=== PATIENT | female | born 1965 | race African-American/Black ===

== ENCOUNTER 2018-05-26 08:09 | Emergency (ER) | payer OTHER ==
[~2018-05-26] VITALS: Ht 157.5 cm; Wt 72.2 kg
--- NOTE | 2018-05-26 09:33 | RAD ---
Chest, PA and Lateral: Technique: PA and lateral views of the chest were obtained. History: Fall, chest pain. Comparison: None. Findings: The heart and pulmonary vasculature appear within normal limits. The lungs are clear. The pleural margins are clear. Impression: No acute chest process is seen. Electronically signed by: Zachary Zayas MD (05/26/2018 9:29 AM) [facility]
[2018-05-26] MEDS ORDERED: ONDANSETRON ODT 4 MG TAB.RAPDIS PO ONE (09:40)
[2018-05-26] MEDS ORDERED: KETOROLAC TROMETHAMINE 10 MG TABLET PO ONE (09:40)
--- NOTE | 2018-05-26 09:45 | PHYS DOC ---
Past History Past Medical History: Anxiety, Depression, Migraines Past Surgical History: Hysterectomy Alcohol Use: None Drug Use: None Adult General Chief Complaint Chief Complaint: BREAST PROBLEM HPI HPI 52 old female presents with right breast pain and concern for breast mass. The patient got up off of the toilet one week ago in as she said it was dizzy. She fell forward in her upper chest and landed on the metal rail of the shower stall. All of her weight landed on this area. She immediately had pain across her chest which was worse on the right side. She has been managing the pain for the last 1 week at home. The patient came in today because she is concerned that she might have a new breast mass. This is located in the 2 o'clock position of the right breast. She continues to have chest wall pain in the same area. She denies fever or chills. She denies shortness of breath or diaphoresis. She has never had a positive mammogram. Review of Systems Review of Systems Constitutional: Denies fever or chills [] Eyes: Denies change in visual acuity, redness, or eye pain [] HENT: Denies nasal congestion or sore throat [] Respiratory: Denies cough or shortness of breath [] Cardiovascular: No additional information not addressed in HPI [] GI: Denies abdominal pain, nausea, vomiting, bloody stools or diarrhea [] : Denies dysuria or hematuria [] Musculoskeletal: Right sided chest wall pain, right breast pain[] Integument: Denies rash or skin lesions [] Neurologic: Denies headache, focal weakness or sensory changes [] Endocrine: Denies polyuria or polydipsia [] All other systems were reviewed and found to be within normal limits, except as documented in this note. Current Medications Current Medications Current Medications Medications (Trade) Dose Ordered Sig/Ana Start Time Stop Time Status Last Admin Dose Admin Ketorolac Tromethamine (Toradol) 10 mg 1X ONCE 05/26/18 09:40 05/26/18 09:41 05/26/18 09:34 10 MG Ondansetron HCl (Zofran Odt) 4 mg 1X ONCE 05/26/18 09:40 05/26/18 09:41 05/26/18 09:33 4 MG Allergies Allergies Allergies Coded Allergies Type Severity Reaction Last Updated Verified Penicillins Allergy Intermediate ITCHY AND DIARRHEA 05/26/18 Yes acetaminophen Allergy Mild ITCHY 05/26/18 Yes morphine Allergy Mild ITCHY 05/26/18 Yes oxycodone Allergy Mild ITCHY 05/26/18 Yes promethazine Allergy Mild ITCHY 05/26/18 Yes Physical Exam Physical Exam Constitutional: Well developed, well nourished, no acute distress, non-toxic appearance. [] HENT: Normocephalic, atraumatic, bilateral external ears normal, oropharynx moist, no oral exudates, nose normal. [] Eyes: PERRLA, EOMI, conjunctiva normal, no discharge. [] Neck: Normal range of motion, no tenderness, supple, no stridor. [] Cardiovascular:Heart rate regular rhythm, no murmur [] Lungs & Thorax: Bilateral breath sounds clear to auscultation. 1.5 cm area of firmness and tenderness at the 2 o'clock position of the right breast. This overlies a rib. [] Abdomen: Bowel sounds normal, soft, no tenderness, no masses, no pulsatile masses. [] Skin: Warm, dry, no erythema, no rash. [] Back: No tenderness, no CVA tenderness. [] Extremities: No tenderness, no cyanosis, no clubbing, ROM intact, no edema. [] Neurologic: Alert and oriented X 3, normal motor function, normal sensory function, no focal deficits noted. [] Psychologic: Affect normal, judgement normal, mood normal. [] Current Patient Data Vital Signs Vital Signs Date Time Temp Pulse Resp B/P (MAP) Pulse Ox O2 Delivery O2 Flow Rate FiO2 05/26/18 08:10 98.0 82 20 98 Room Air EKG EKG [] Radiology/Procedures Radiology/Procedures [] Impressions: Examination: Ultrasound right medial chest HISTORY: History of pain, lump, fall COMPARISON: None available FINDINGS: Ultrasound of the right medial chest wall demonstrates no definite evidence of mass or lesion on the visualized images. IMPRESSION: No evidence of mass or lesion identified in the medial right chest wall at the site of perceived lump. Electronically signed by: Zachary Zayas MD (05/26/2018 11:12 AM) [facility] DICTATED AND SIGNED BY: ZACHARY ZAYAS MD DATE: 05/26/18 1110 CC: KIRSTEN SAEED DO; ZOE KRUEGER DO Chest, PA and Lateral: Technique: PA and lateral views of the chest were obtained. History: Fall, chest pain. Comparison: None. Findings: The heart and pulmonary vasculature appear within normal limits. The lungs are clear. The pleural margins are clear. Impression: No acute chest process is seen. Electronically signed by: Zachary Zayas MD (05/26/2018 9:29 AM) [facility] DICTATED AND SIGNED BY: ZACHARY ZAYAS MD DATE: 05/26/18925 CC: KIRSTEN SAEED DO; ZOE KRUEGER DO Course & Med Decision Making Course & Med Decision Making Pertinent Labs and Imaging studies reviewed. (See chart for details) The patient's chest x-ray is unremarkable. Her ultrasound did not show any mass or other concerns in the area in question. I believe she just has deep tissue bruising. She is stable for discharge at this time. I will discharge her with a short course of tramadol. Dragon Disclaimer Dragon Disclaimer This electronic medical record was generated, in whole or in part, using a voice recognition dictation system. Departure Departure: Referrals: KIRSTEN SAEED DO (PCP) ZOE KRUEGER DO May 26, 2018 09:45
[2018-05-26] MEDS ORDERED: traMADol 50 MG TABLET ONE (10:56)
[2018-05-26 11:15] VITALS: BP 118/79
--- NOTE | 2018-05-26 11:16 | RAD ---
Examination: Ultrasound right medial chest HISTORY: History of pain, lump, fall COMPARISON: None available FINDINGS: Ultrasound of the right medial chest wall demonstrates no definite evidence of mass or lesion on the visualized images. IMPRESSION: No evidence of mass or lesion identified in the medial right chest wall at the site of perceived lump. Electronically signed by: Zachary Zayas MD (05/26/2018 11:12 AM) [facility]
[2018-05-26] MEDS ORDERED: traMADol 50 MG TABLET PO ONE (11:20)
[2018-05-26] MEDS ORDERED: TRAM50TA PO (11:32)
== END 2018-05-26 11:39 | disposition home or self-care (01) ==
LOC: ER 08:09
DX: N64.4 Mastodynia (principal); R42 Dizziness and giddiness; R07.89 Other chest pain; N63.10 Unspecified lump in the right breast, unspecified quadrant; G89.11 Acute pain due to trauma; F41.9 Anxiety disorder, unspecified; F32.9 Major depressive disorder, single episode, unspecified; G43.909 Migraine, unspecified, not intractable, without status migrainosus; Z88.0 Allergy status to penicillin; Z88.6 Allergy status to analgesic agent; Z88.5 Allergy status to narcotic agent; Z88.8 Allergy status to other drugs, medicaments and biological substances; W18.09XA Striking against other object with subsequent fall, initial encounter; Y93.89 Activity, other specified; Y92.89 Other specified places as the place of occurrence of the external cause; Y99.8 Other external cause status
CPT/HCPCS: 71046; 76604; 99284; Q0162

== ENCOUNTER → 2018-11-19 | Outpatient (CLI) | payer OTHER ==
[~2018-11-19] MED LIST: TRAM50TA PO
[2018-11-24 13:10] LABS: TESTOSTERONE FREE 0.15 ng/dL (0.10-0.85); TESTOSTERONE TOTAL 20 ng/dL (3-41)
== END | disposition home or self-care (01) ==
LOC: LAB 16:18
PROVIDERS: ATTEND Nurse Practitioner Women's Health
DX: R68.82 Decreased libido (principal)
CPT/HCPCS: 36415; 84402; 84403

== ENCOUNTER 2019-04-29 10:59 | Inpatient (IN) | payer OTHER ==
[~2019-04-29] VITALS: Ht 157.5 cm; Wt 73.0 kg
--- NOTE | 2019-04-29 12:11 | RAD ---
EXAM: CHEST 1 VIEW History: Chest pain COMPARISON: 05/26/2018 TECHNIQUE: Single portable radiograph of the chest FINDINGS: The cardiac silhouette is unremarkable. The lungs are clear bilaterally. The costophrenic sulci are clear and well demarcated. IMPRESSION: No radiographic evidence of an acute cardiopulmonary process. Electronically signed by: Zachary Zayas MD (04/29/2019 12:08 PM) [id number]
[2019-04-29 12:25] LABS: BASO % 1 % (0-3); EOS # 0.3 x10^3/uL (0.0-0.7); EOS % 10 % (0-3); HEMATOCRIT 39.3 % (36.0-47.0); HEMOGLOBIN 13.2 g/dL (12.0-15.5); LYMPH # 1.1 x10^3/uL (1.0-4.8); LYMPH % 40 % (24-48); MEAN CORPUSCULAR HEMOGLOBIN 32 pg (25-35); MEAN CORPUSCULAR HGB CONC 34 g/dL (31-37); MEAN CORPUSCULAR VOLUME 95 fL (79-100); MONO # 0.4 x10^3/uL (0.0-1.1); MONO % 16 % (0-9); NEUT # 0.9 x10^3uL (1.8-7.7); NEUT % 33 % (31-73); PLATELET COUNT 212 x10^3/uL (140-400); RED BLOOD COUNT 4.15 x10^6/uL (3.50-5.40); RED CELL DISTRIBUTION WIDTH 13.1 % (11.5-14.5); WHITE BLOOD COUNT 2.7 x10^3/uL (4.0-11.0)
[2019-04-29 12:36] LABS: ALBUMIN 3.8 g/dL (3.4-5.0); ALBUMIN/GLOBULIN RATIO 1.2 (1.0-1.7); CALCIUM 9.2 mg/dL (8.5-10.1); CREATININE 0.8 mg/dL (0.6-1.0); GFR 91.5; POTASSIUM 4.3 mmol/L (3.5-5.1); TOTAL BILIRUBIN 0.1 mg/dL (0.2-1.0); TOTAL PROTEIN 6.9 g/dL (6.4-8.2)
[2019-04-29] MEDS ORDERED: ONDANSETRON PF 4 MG/2 ML VIAL. IV ONE (12:45)
[2019-04-29] MEDS ORDERED: LIDO:MAALOX 1:1 20 ML SINGLE DOSE. PO ONE (12:45)
[2019-04-29] MEDS ORDERED: FAMOTIDINE 20 MG/2 ML VIAL IVP ONE (12:45)
--- NOTE | 2019-04-29 12:49 | ED.ADGEN ---
Past History Past Medical History: Anxiety, Depression Past Surgical History: Cholecystectomy, Hysterectomy Alcohol Use: None Drug Use: None Adult General Chief Complaint Chief Complaint Chest pain HPI HPI Patient is a 53-year-old -[place] female with history of hypertension who presents with left-sided chest pressure radiating to left shoulder and arm. Symptom onset was 4 hours prior to ED arrival while at rest. Associated symptoms include nausea sweats and abdominal discomfort. Chest pressure is described as mild and is not worsened or improved by activity or behavior. Denies vomiting, hematemesis, diarrhea or melena. No fevers chills, sweats. No dizziness or lightheadedness. No other acute symptoms or complaints.] Review of Systems Review of Systems Review symptoms as per history of present illness. All other review symptoms are negative. All other systems were reviewed and found to be within normal limits, except as documented in this note. Current Medications Current Medications Current Medications Medications (Trade) Dose Ordered Sig/Ana Start Time Stop Time Status Last Admin Dose Admin Famotidine (Pepcid Vial) 20 mg 1X ONCE 04/29/19 12:45 04/29/19 12:46 DC 04/29/19 12:52 20 MG Multi-Ingredient Mouthwash/Gargle (Gi Cocktail) 20 ml 1X ONCE 04/29/19 12:45 04/29/19 12:46 DC 04/29/19 12:52 20 ML Nitroglycerin (Nitrostat) 0.4 mg 1X ONCE 04/29/19 14:15 04/29/19 14:16 DC 04/29/19 14:07 0.4 MG Ondansetron HCl (Zofran) 4 mg 1X ONCE 04/29/19 12:45 04/29/19 12:46 DC 04/29/19 12:52 4 MG Allergies Allergies Allergies Coded Allergies Type Severity Reaction Last Updated Verified Penicillins Allergy Intermediate ITCHY AND DIARRHEA 05/26/18 Yes morphine Allergy Mild ITCHY 05/26/18 Yes oxycodone Allergy Mild ITCHY 05/26/18 Yes promethazine Allergy Mild ITCHY 05/26/18 Yes Physical Exam Physical Exam Constitutional: Well developed, well nourished, no acute distress. [] HENT: Normocephalic, atraumatic, bilateral external ears normal, oropharynx moist, nose normal. [] Eyes: PERRLA, EOMI, conjunctiva normal, no discharge. [] Neck: Normal range of motion, no tenderness, supple, no stridor. [] Cardiovascular:Heart rate regular rhythm, no murmur [] Lungs & Thorax: Bilateral breath sounds clear to auscultation [] Abdomen: Bowel sounds normal, soft, no tenderness. [] Skin: Warm, dry, no erythema, no rash. [] Back: No tenderness, no CVA tenderness. [] Extremities: No tenderness, no cyanosis, no clubbing, ROM intact, no edema. [] Neurologic: Alert and oriented X 3, anxious, normal sensory function, no focal deficits noted. [] Psychologic: Affect normal, judgement normal, mood normal. [] Current Patient Data Vital Signs Vital Signs Date Time Temp Pulse Resp B/P (MAP) Pulse Ox O2 Delivery O2 Flow Rate FiO2 04/29/19 14:07 52 108/62 04/29/19 13:46 18 100 Room Air 04/29/19 11:16 98.3 Lab Results Laboratory Tests Test 04/29/19 12:15 White Blood Count 2.7 x10^3/uL (4.0-11.0) L Red Blood Count 4.15 x10^6/uL (3.50-5.40) Hemoglobin 13.2 g/dL (12.0-15.5) Hematocrit 39.3 % (36.0-47.0) Mean Corpuscular Volume 95 fL (79-100) Mean Corpuscular Hemoglobin 32 pg (25-35) Mean Corpuscular Hemoglobin Concent 34 g/dL (31-37) Red Cell Distribution Width 13.1 % (11.5-14.5) Platelet Count 212 x10^3/uL (140-400) Neutrophils (%) (Auto) 33 % (31-73) Lymphocytes (%) (Auto) 40 % (24-48) Monocytes (%) (Auto) 16 % (0-9) H Eosinophils (%) (Auto) 10 % (0-3) H Basophils (%) (Auto) 1 % (0-3) Neutrophils # (Auto) 0.9 x10^3uL (1.8-7.7) L Lymphocytes # (Auto) 1.1 x10^3/uL (1.0-4.8) Monocytes # (Auto) 0.4 x10^3/uL (0.0-1.1) Eosinophils # (Auto) 0.3 x10^3/uL (0.0-0.7) Basophils # (Auto) 0.0 x10^3/uL (0.0-0.2) Sodium Level 130 mmol/L (136-145) L Potassium Level 4.3 mmol/L (3.5-5.1) Chloride Level 94 mmol/L (98-107) L Carbon Dioxide Level 29 mmol/L (21-32) Anion Gap 7 (6-14) Blood Urea Nitrogen 7 mg/dL (7-20) Creatinine 0.8 mg/dL (0.6-1.0) Estimated GFR (Cockcroft-Gault) 91.5 BUN/Creatinine Ratio 9 (6-20) Glucose Level 84 mg/dL (70-99) Calcium Level 9.2 mg/dL (8.5-10.1) Total Bilirubin 0.1 mg/dL (0.2-1.0) L Aspartate Amino Transferase (AST) 35 U/L (15-37) Alanine Aminotransferase (ALT) 62 U/L (14-59) H Alkaline Phosphatase 96 U/L (46-116) Troponin I Quantitative < 0.017 ng/mL (0-0.055) Total Protein 6.9 g/dL (6.4-8.2) Albumin 3.8 g/dL (3.4-5.0) Albumin/Globulin Ratio 1.2 (1.0-1.7) EKG EKG [EKG: Sinus bradycardia, rate 50, no acute ST-T wave changes.] Radiology/Procedures Radiology/Procedures [Chest x-ray: No acute cardiopulmonary disease per radiology report] Course & Med Decision Making Course & Med Decision Making Pertinent Labs and Imaging studies reviewed. (See chart for details) [Atypical chest pain. No relief with Pepcid and GI cocktail. Reports complete relief with nitroglycerin �1. Aspirin taken prior to ED arrival. Will admit to the hospitalist service for further evaluation and treatment.] Final Impression Final Impression [1. Chest pain] Dragon Disclaimer Dragon Disclaimer This electronic medical record was generated, in whole or in part, using a voice recognition dictation system. ZOE GUERRERO DO Apr 29, 2019 12:49
[2019-04-29] MEDS ORDERED: NITROGLYCERIN SUBLINGUAL 0.4 MG BOTTLE OF 25. SL ONE (14:15)
--- NOTE | 2019-04-29 14:38 | EKG ---
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
[2019-04-29] MEDS ORDERED: NITROGLYCERIN SUBLINGUAL 0.4 MG BOTTLE OF 25. SL PRN (15:00)
[2019-04-29] MEDS ORDERED: ONDANSETRON PF 4 MG/2 ML VIAL. IV PRN (15:00)
[2019-04-29] MEDS ORDERED: CLON0.5T11 PO (15:56)
[2019-04-29] MEDS ORDERED: OXCA600T3 PO (15:56)
[2019-04-29] MEDS ORDERED: ZOLP10TA PO (15:56)
[2019-04-29] MEDS ORDERED: CETI10TA22 PO (15:56)
[2019-04-29] MEDS ORDERED: MONT10TA80 PO (15:56)
[2019-04-29] MEDS ORDERED: TRAZ-86 PO (15:56)
[2019-04-29] MEDS ORDERED: PROP10TA PO (15:56)
[2019-04-29] MEDS ORDERED: CHOL10003 PO (15:56)
[2019-04-29 16:35] VITALS: BP 104/53
[2019-04-29] MEDS ORDERED: CYAN10002 IM (17:22)
[2019-04-29] MEDS ORDERED: CLON1TAB11 PO (17:22)
[2019-04-29] MEDS ORDERED: VORT10TA PO (17:22)
[2019-04-29] MEDS ORDERED: ZOLPIDEM 5 MG TABLET. PO PRN (17:30)
[2019-04-29] MEDS: IV NORMAL SALINE 1,000ML 1,000 ML IV SCH (18:12)
[2019-04-29 19:06] VITALS: BP 99/69
[2019-04-29] MEDS: PROPRANOLOL 10 MG TABLET. PO SCH (19:11)
[2019-04-29] MEDS: NON FORMULARY ITEM (Vortioxetine Hydrobromide (Trintellix) 10 MG) PO SCH (19:11)
[2019-04-29] MEDS: CHOLECALCIFEROL (VITAMIN D3) 1,000 UNIT TABLET PO SCH (20:33)
[2019-04-29] MEDS: clonazePAM 1 MG TABLET PO SCH (20:33)
[2019-04-29] MEDS ORDERED: traZODone 100 MG TABLET. PO SCH (21:00)
[2019-04-29] MEDS ORDERED: MONTELUKAST 10 MG TABLET. PO SCH (21:00)
[2019-04-29 22:56] VITALS: BP 103/54
[2019-04-30] MEDS: IV NORMAL SALINE 1,000ML 1,000 ML IV SCH (03:26)
[2019-04-30 05:52] VITALS: BP_SYST 158; BP_SYST 90; BP_DIAS 66; BP_DIAS 82
[2019-04-30] MEDS: traMADol 50 MG TABLET PO PRN ×2 (06:31→13:21)
[2019-04-30 07:44] LABS: BASO % 1 % (0-3); EOS # 0.2 x10^3/uL (0.0-0.7); EOS % 8 % (0-3); HEMATOCRIT 39.8 % (36.0-47.0); HEMOGLOBIN 13.2 g/dL (12.0-15.5); LYMPH # 0.9 x10^3/uL (1.0-4.8); LYMPH % 31 % (24-48); MEAN CORPUSCULAR HEMOGLOBIN 31 pg (25-35); MEAN CORPUSCULAR HGB CONC 33 g/dL (31-37); MEAN CORPUSCULAR VOLUME 95 fL (79-100); MONO # 0.5 x10^3/uL (0.0-1.1); MONO % 17 % (0-9); NEUT # 1.3 x10^3uL (1.8-7.7); NEUT % 44 % (31-73); PLATELET COUNT 230 x10^3/uL (140-400); RED CELL DISTRIBUTION WIDTH 13.6 % (11.5-14.5); WHITE BLOOD COUNT 2.9 x10^3/uL (4.0-11.0)
[2019-04-30 08:02] LABS: ALBUMIN 3.4 g/dL (3.4-5.0); ALBUMIN/GLOBULIN RATIO 1.1 (1.0-1.7); CALCIUM 9.1 mg/dL (8.5-10.1); CREATININE 0.8 mg/dL (0.6-1.0); GFR 91.5; POTASSIUM 4.1 mmol/L (3.5-5.1); TOTAL BILIRUBIN 0.1 mg/dL (0.2-1.0); TOTAL PROTEIN 6.4 g/dL (6.4-8.2)
[2019-04-30] MEDS: clonazePAM 1 MG TABLET PO SCH (08:10)
[2019-04-30] MEDS: PROPRANOLOL 10 MG TABLET. PO SCH (08:10)
[2019-04-30] MEDS: CHOLECALCIFEROL (VITAMIN D3) 1,000 UNIT TABLET PO SCH (08:10)
[2019-04-30] MEDS: NON FORMULARY ITEM (Vortioxetine Hydrobromide (Trintellix) 10 MG) PO SCH (08:12)
[2019-04-30] MEDS ORDERED: CETIRIZINE HCL 10 MG TABLET PO SCH (09:00)
[2019-04-30 11:28] VITALS: BP 108/60
--- NOTE | 2019-04-30 16:52 | HP ---
ADMIT DATE: 04/29/2019 HISTORY OF PRESENT ILLNESS: The patient is a 53-year-old -[place] female patient, who apparently presented to the Emergency Room with complaint of left-sided chest pressure radiating to left shoulder and arm. Her symptoms started about 4 hours prior to arrival to the Emergency Room. She was nauseous, not vomited. She has also had diaphoresis. She rated her pain as 10/10, but nothing has improved or worsened her pain. She denied any vomiting, hematemesis, diarrhea or melena. Denied any dizziness or lightheadedness. She was extensively investigated in the Emergency Room. Her EKG showed that she was in sinus bradycardia, rate of [address]-T changes. Her chest x-ray showed no acute cardiopulmonary disease and her lab work showed that she has leukopenia, hyponatremia and first set of cardiac enzymes showed troponin to be less than 0.017. The patient was admitted to do 2 more sets of cardiac enzymes, do an echocardiogram and consult the Cardiology team. PAST MEDICAL HISTORY: She is on propranolol for hypertension. She has also depression, anxiety, and insomnia. PAST SURGICAL HISTORY: Significant for gastric bypass surgery done about 10 years ago. At that time, she lost about 145 pounds. She is status post cholecystectomy, total abdominal hysterectomy, bilateral salpingo-oophorectomy. She also underwent liposuction, esophagogastroduodenoscopy as well as colonoscopy. ALLERGIES: She is allergic to PENICILLIN, MORPHINE, OXYCODONE, and PROMETHAZINE. FAMILY HISTORY: She has 3 brothers, 2 younger and 1 older and all healthy. She has 3 sisters, the older sister was healthy. She has one sister, she has SLE and end-stage renal disease, on hemodialysis. The other one has sarcoidosis. Her father at the age of 82, the cause of is unknown, questionable drug overdose. Her mother is still alive at the age of 72 and she has sarcoidosis. SOCIAL HISTORY: She is , has 1 daughter and 2 sons. She does not smoke, drink alcohol or use any recreational drugs. She has been working from the [employer]. REVIEW OF SYSTEMS: The patient denied any blurring of vision, cataract, glaucoma or macular degeneration. Denied any earache, tinnitus or sensorineural deafness. Denied any nosebleeds, stuffy nose or postnasal drip. Denied any sore throat, sore tongue, toothache, hoarseness of voice or difficulty swallowing. Did complain of nausea, but no vomiting. Denied any diarrhea or constipation. Denied any hematemesis, melena or hematochezia. Denied any dysuria, frequency or hematuria. Denied any shortness of breath, orthopnea or paroxysmal nocturnal dyspnea. Denied any cough, phlegm or hemoptysis. MEDICATIONS: She is currently on following medications: She is on cetirizine 10 mg once a day; propranolol 10 mg twice a day; clonazepam 1 mg twice a day; oxcarbazepine 600 mg, she takes 1200 mg twice a day; trazodone 100 mg at bedtime; Trintellix 10 mg twice a day; Ambien 12.5 mg at bedtime; Singulair 10 mg at bedtime; cyanocobalamin for vitamin B12 1000 mcg/mL intramuscular monthly. She is on cholecalciferol 1000 International Units once a day. PHYSICAL EXAMINATION: GENERAL: On arrival to the Emergency Room, she looked well and was clearly in no apparent respiratory distress. No pallor, jaundice, cyanosis or thyromegaly. No jugular venous distention. No limb edema. VITAL SIGNS: Her heart rate was 50, blood pressure 121/64, temperature was 98.3, respiratory rate was 20, and oxygen saturation was 99% on room air. HEAD, EYES, EARS, NOSE AND THROAT: Showed normocephalic, atraumatic. NECK: Supple. HEART: Showed normal first and second heart sounds with no gallop, rub or murmur. CHEST: Clear to auscultation. No crepitation or rhonchi. ABDOMEN: Distended, soft, nontender. NEUROLOGIC: She is awake, alert, responding appropriately. All cranial nerves intact. EXTREMITIES: She ambulates without assistance or assistive devices. LABORATORY DATA: As of yesterday, her white cell count was 2700, hemoglobin 13, hematocrit 39, MCV 95, and platelet count 212,000 with manual differential showed 32% polymorphs, 40% lymphocytes, 16% monocytes and 10% eosinophils. Her chemistry showed a serum sodium 130, potassium 4.3, chloride 94, bicarbonate 29, anion gap of 7, BUN 7, creatinine 0.8, estimated GFR was 91 mL per minute. Her glucose was 84, calcium was 9.2. Total bilirubin, AST, ALT, alkaline phosphatase were normal. First set of cardiac enzymes showed troponin to be less than 0.017. Total protein 6.9, albumin 3.8. PLAN: Plan is to do 2 more sets of cardiac enzymes and also an echocardiogram and consult the Cardiology team. GABO HANEY MD DR: TEJAL/karena JOB#: [id number] / [id number]
--- NOTE | 2019-04-30 18:47 | PDOC ---
PROVIDER NOTE PROVIDER NOTE PROVIDER NOTE Cardiology consultation note: Reason for consultation chest pain Consultations physician: Dr. Edne History of present illness 53-year-old woman coming to the hospital in the setting of chest pain. She apparently was in her usual state of health and began to have some chest pain over the left breast. She denies any association with diaphoresis, nausea, vomiting, diarrhea, fevers or chills. She's not had any exertional chest pain or dyspnea with her activity at work or at home. She's not had any palpitations or syncope. Initial evaluation thus far in the hospital has not reveal any significant pathology. Past medical history is notable for depression Social history no alcohol, tobacco or illicit drug use. Allergies to penicillin, morphine, oxycodone and promethazine Current cardiovascular medications none Review systems is negative unless otherwise mentioned above in history of present illness Physical examination: The patient appeared well nourished and normally developed. Head exam is unremarkable. No scleral icterus or corneal arcus noted. Neck is without jugular venous distension, thyromegaly, or carotid bruits. Carotid upstrokes are brisk bilaterally. Lungs are clear to auscultation and percussion. Cardiac exam reveals the PMI to be normally sized and situated. Rhythm is regular. First and second heart sounds normal. No murmurs, rubs or gallops. Abdominal exam reveals normal bowel sounds, no masses, no organomegaly and no aortic enlargement. Extremities are nonedematous and both femoral and pedal pulses are normal. Msk: No traumua Neuro: No focal deficits Diagnostic studies: No significant abnormalities noted in her cardiac enzymes. She is leukopenic. EKG is unremarkable. Echo reveals normal LV function. Impression: 1. Noncardiac chest pain Recommend issues: 1. She's a very low risk presentation. Given her age, lack of risk factors and normal echo, EKG and enzymes no further cardiac testing warranted. If she has any recurrence could consider an outpatient stress test as needed. JARED MERCADO MD Apr 30, 2019 18:47
--- NOTE | 2019-05-01 00:52 | DS ---
DATE OF DISCHARGE: 04/30/2019 HOSPITAL COURSE: The patient is a 53-year-old -[place] female patient who presented with left-sided chest pain, radiating to her left shoulder and arm. Symptoms started about 4 hours prior to arrival to the Emergency Room, she was nauseous, but did not vomit. She had also diaphoresis. She rates her pain as 10/10, but nothing has improved, worsened her pain. She denied any vomiting, hematemesis, diarrhea, or melena. Her EKG showed that she was in sinus bradycardia with a heart rate of 50 beats per minute with no acute ST-T changes. She apparently did have 3 sets of cardiac enzymes, all of them were less than 0.017. She did have also hyponatremia that resolved. She was seen in consultation by the Cardiology team and an echocardiogram was done that apparently was normal though I do not have the report available here, but the corporate trainer recommended the patient can be discharged home. She was discharged to follow up with her primary care physician. On the discharge, she looked well and was clearly in no apparent respiratory distress. No pallor, jaundice, cyanosis, or thyromegaly. Her heart rate was 55, blood pressure was 108/60, temperature was 98.1, respiratory rate 12, and oxygen saturation was 96%. The rest of clinical examination is stable. LABORATORY DATA: This morning showed a serum sodium 138, potassium 4.1, chloride 104, bicarbonate 8, anion gap of 6, BUN 8, creatinine 0.8, estimated GFR was 91 mL per minute, her glucose was 98, and calcium was 9.1. Total bilirubin, AST, ALT, alkaline phosphatase were normal. Total protein was 6.4, albumin 2.4. DISCHARGE MEDICATIONS: She was discharged home to continue on following medication: Cetirizine 10 mg once a day, ergocalciferol vitamin D3 1000 international units twice a day, clonazepam 1 mg twice a day, cyanocobalamin 1000 mcg/mL intramuscular once a month, Singulair 10 mg once a day, oxcarbazepine for Trileptal 1200 mg twice a day, propranolol 10 mg twice a day, trazodone 100 mg at bedtime, Trintellix 10 mg twice a day, and Ambien 12.5 mg at bedtime. FINAL DISCHARGE DIAGNOSES: 1. Hypertension. 2. Atypical chest pain. 3. Vitamin B12 deficiency. 4. Vitamin D deficiency. 5. Depression and insomnia. GABO HANEY MD DR: TEJAL/karena JOB#: [id number] / [id number]
--- NOTE | 2019-05-01 13:07 | CARD ---
MR#: [id number] Date of Study: 04/30/2019 Ordering Physician: GABO HANEY, Referring Physician: GABO HANEY, Tech: Mary Jane Fontana [facility] APPROVED REPORT EXAM: Two-dimensional and M-mode echocardiogram with Doppler and color Doppler. Other Information Quality : GoodHR: 65bpm Rhythm : NSR INDICATION Chest Pain 2D DIMENSIONS RVDd2.9 (2.9-3.5cm)Left Atrium(2D)3.7 (1.6-4.0cm) IVSd1.3 (0.7-1.1cm)Aortic Root(2D)2.7 (2.0-3.7cm) LVDd3.8 (3.9-5.9cm)PWd1.1 (0.7-1.1cm) LVDs2.7 (2.5-4.0cm)FS (%) 30.2 % SV36.5 mlLVEF(%)58.3 (>50%) M-Mode DIMENSIONS Left Atrium(MM)3.60 (2.5-4.0cm)Aortic Root2.89 (2.2-3.7cm) Aortic Valve AoV Peak Jamil.155.4cm/sAoV VTI28.9cm AO Peak GR.9.7mmHgAO Mean GR.5mmHg MANJU (VTI)1.81cm2 Mitral Valve MV E Hxzyswfx48.7cm/sMV DECEL GZOS445ip MV A Qxsbgmcm41.4cm/sE/A Ratio0.8 MV A Vaoguixz271sq Tricuspid Valve TR P. Flkrstgl613av/sRAP DRLXGBBH5ymJs TR Peak Gr.06ecCcRMOD68htTe LEFT VENTRICLE The left ventricle is normal size. Proximal septal thickening is noted. The left ventricular systolic function is normal and the ejection fraction is within normal range. The Ejection Fraction is 55-60% . There is normal LV segmental wall motion. Transmitral Doppler flow pattern is Grade I-abnormal rela xation pattern. RIGHT VENTRICLE The right ventricle is normal size. There is normal right ventricular wall thickness. The right ventr icular systolic function is normal. ATRIA The left atrium size is normal. The right atrium size is normal. The interatrial septum is intact wit h no evidence for an atrial septal defect or patent foramen ovale as noted on 2-D or Doppler imaging. AORTIC VALVE The aortic valve is thickened but opens well. The aortic valve is trileaflet. Doppler and Color Flow revealed no significant aortic regurgitation. There is no significant aortic valvular stenosis. There is no aortic valvular vegetation. MITRAL VALVE The mitral valve is normal in structure and function. There is no evidence of mitral valve prolapse. There is no mitral valve stenosis. Doppler and Color-flow revealed trace mitral regurgitation. TRICUSPID VALVE The tricuspid valve is normal in structure and function. Doppler and Color Flow revealed trace tricus pid regurgitation. The PA pressure was estimated at 28 mmHg. There is no tricuspid valve prolapse or vegetation. There is no tricuspid valve stenosis. PULMONIC VALVE The pulmonic valve is not well visualized. GREAT VESSELS The aortic root is normal in size. The ascending aorta is normal in size. The IVC is normal in size a nd collapses >50% with inspiration. PERICARDIAL EFFUSION There is no evidence of significant pericardial effusion. Critical Notification Critical Value: No <Conclusion> The left ventricular systolic function is normal and the ejection fraction is within normal range. Th e Ejection Fraction is 55-60%. There is normal LV segmental wall motion. Signed by : Donte Hernandez, Electronically Approved : 04/30/2019 11:53:31
== END 2019-04-30 17:02 | disposition home or self-care (01) | DRG 313 ==
LOC: ER 10:59 → 1 SOUTH 14:30 → UNDOADMIN 14:30 → ICU 14:30
PROVIDERS: ADMIT Internal Medicine; ATTEND Internal Medicine
DX: R07.89 Other chest pain (principal); E87.1 Hypo-osmolality and hyponatremia; Z88.8 Allergy status to other drugs, medicaments and biological substances; E53.8 Deficiency of other specified B group vitamins; E55.9 Vitamin D deficiency, unspecified; F32.9 Major depressive disorder, single episode, unspecified; G47.00 Insomnia, unspecified; I10 Essential (primary) hypertension; Z88.0 Allergy status to penicillin; Z90.49 Acquired absence of other specified parts of digestive tract; Z90.710 Acquired absence of both cervix and uterus; Z98.84 Bariatric surgery status; F41.9 Anxiety disorder, unspecified; Z90.722 Acquired absence of ovaries, bilateral; Z88.5 Allergy status to narcotic agent
CPT/HCPCS: 36415; 71045; 80053; 84484; 85025; 87641; 93005; 93306; 96374; 96375; J2405; J3490; 99285-25; J7030

== ENCOUNTER 2019-09-04 07:44 | Emergency (ER) | payer OTHER ==
[~2019-09-04] VITALS: Ht 157.5 cm; Wt 74.3 kg
[~2019-09-04 07:44] MED LIST changes: +CETI10TA24 PO; +CHOL10003 PO; +CLON0.5T4 PO; +CLON1TAB11 PO; +CYAN10002 IM; +MONT10TA80 PO; +OXCA600T3 PO; +PROP10TA PO; +TRAZ-125 PO; +VORT10TA PO; +ZOLP10TA PO
[2019-09-04 08:59] LABS: BASO % 2 % (0-3); EOS # 0.3 x10^3/uL (0.0-0.7); EOS % 11 % (0-3); HEMATOCRIT 41.1 % (36.0-47.0); HEMOGLOBIN 13.6 g/dL (12.0-15.5); LYMPH # 1.1 x10^3/uL (1.0-4.8); LYMPH % 37 % (24-48); MEAN CORPUSCULAR HEMOGLOBIN 32 pg (25-35); MEAN CORPUSCULAR HGB CONC 33 g/dL (31-37); MEAN CORPUSCULAR VOLUME 96 fL (79-100); MONO # 0.4 x10^3/uL (0.0-1.1); MONO % 13 % (0-9); NEUT # 1.1 x10^3uL (1.8-7.7); NEUT % 38 % (31-73); PLATELET COUNT 241 x10^3/uL (140-400); RED BLOOD COUNT 4.27 x10^6/uL (3.50-5.40); RED CELL DISTRIBUTION WIDTH 14.8 % (11.5-14.5); WHITE BLOOD COUNT 2.9 x10^3/uL (4.0-11.0)
--- NOTE | 2019-09-04 09:07 | PHYS DOC ---
Past History Past Medical History: Anxiety, Depression, Migraines Past Surgical History: Cholecystectomy, Hysterectomy, Oophorectomy, Other Additional Past Surgical Histo: buttocks tucked Alcohol Use: None Drug Use: None Adult General Chief Complaint Chief Complaint: LOWER EXT PAIN [facility] HPI Patient is a 53-year-old -[place] female presented to ER today for evaluation of bilateral lower extremity swelling and pain, lower back pain that had been going on for several months. He denies any injury, denies any chest pain, no abdominal pain, no trouble breathing, no cough or fever. She denies any bowel or bladder incontinence. Patient was admitted here on April last year for chest pain and leg swelling. Patient had an echocardiogram done, IT was totally normal with EF of 55-60%. Patient was then seen by her family doctor, ultrasound of her lower extremity done 4 WEEKS AGO, did not show any blood clot per patient. Patient continues to have intermittent episode swelling and pain in her legs and back so she came here for evaluation. She denies any history of blood clot disorder. She has history of lupus. All other ROS is negative unless otherwise noted in HPI Review of Systems Review of Systems See above Allergies Allergies Allergies Coded Allergies Type Severity Reaction Last Updated Verified Penicillins Allergy Intermediate ITCHY AND DIARRHEA 09/04/19 Yes morphine Allergy Mild ITCHY 09/04/19 Yes oxycodone Allergy Mild ITCHY 09/04/19 Yes promethazine Allergy Mild ITCHY 09/04/19 Yes Physical Exam Physical Exam See above Constitutional: Well developed, well nourished, no acute distress, non-toxic appearance. [] HENT: Normocephalic, atraumatic, bilateral external ears normal, oropharynx moist, no oral exudates, nose normal. [] Eyes: PERRLA, EOMI, conjunctiva normal, no discharge. [] Neck: Normal range of motion, no tenderness, supple, no stridor. [] Cardiovascular:Heart rate regular rhythm, no murmur [] Lungs & Thorax: Bilateral breath sounds clear to auscultation [] Abdomen: Bowel sounds normal, soft, no tenderness, no masses, no pulsatile masses. [] Skin: Warm, dry, no erythema, no rash. [] Back: No tenderness, no CVA tenderness. [] Extremities: No tenderness, no cyanosis, no clubbing, ROM intact, no edema. [] Neurologic: Alert and oriented X 3, normal motor function, normal sensory function, no focal deficits noted. [] Psychologic: Affect normal, judgement normal, mood normal. [] Current Patient Data Vital Signs Vital Signs Date Time Temp Pulse Resp B/P (MAP) Pulse Ox O2 Delivery O2 Flow Rate FiO2 09/04/19 08:50 52 18 108/60 (76) 99 Room Air 09/04/19 07:55 97.5 Lab Results Laboratory Tests Test 09/04/19 08:46 White Blood Count 2.9 x10^3/uL (4.0-11.0) L Red Blood Count 4.27 x10^6/uL (3.50-5.40) Hemoglobin 13.6 g/dL (12.0-15.5) Hematocrit 41.1 % (36.0-47.0) Mean Corpuscular Volume 96 fL (79-100) Mean Corpuscular Hemoglobin 32 pg (25-35) Mean Corpuscular Hemoglobin Concent 33 g/dL (31-37) Red Cell Distribution Width 14.8 % (11.5-14.5) H Platelet Count 241 x10^3/uL (140-400) Neutrophils (%) (Auto) 38 % (31-73) Lymphocytes (%) (Auto) 37 % (24-48) Monocytes (%) (Auto) 13 % (0-9) H Eosinophils (%) (Auto) 11 % (0-3) H Basophils (%) (Auto) 2 % (0-3) Neutrophils # (Auto) 1.1 x10^3uL (1.8-7.7) L Lymphocytes # (Auto) 1.1 x10^3/uL (1.0-4.8) Monocytes # (Auto) 0.4 x10^3/uL (0.0-1.1) Eosinophils # (Auto) 0.3 x10^3/uL (0.0-0.7) Basophils # (Auto) 0.0 x10^3/uL (0.0-0.2) EKG EKG [] Radiology/Procedures Radiology/Procedures [][address] [address] IMAGING REPORT Signed PATIENT: JABARI OLIVER ACCOUNT: [id number] : 1965 LOCATION: ER AGE: 53 SEX: F EXAM STATUS: REG ER ORD. PHYSICIAN: GIULIANA VALDEZ DO REASON: lower back pain for 3 weeks PROCEDURE: LUMBAR SPINE 2-3V Examination: LUMBAR SPINE 2-3V History: Lower back pain for 3 weeks Comparison/Correlation: 07/20/2006 CT abdomen and pelvis without contrast Findings: Total of 3 images of the lumbar spine were obtained. Right upper quadrant surgical clips are incidentally seen. There are 2 radiopaque densities within the pelvis. Correlate with previous intervention. Suture material the left mid abdomen noted. Alignment of the lumbar spine is mostly within normal limits. Minimal retrolisthesis of L3 in relation L4 is present. Mild facet joint degenerative change noted. No fracture or bony destruction. Slight L4-5 disc space narrowing suggested. Impression: No suspicious acute process. Electronically signed by: Paul Curtis MD (09/04/2019 9:17 AM) [facility] DICTATED AND SIGNED BY: PAUL CURTIS MD DATE: 09/04/19916 CC: KIRSTEN SAEED DO; GIULIANA VALDEZ DO ~ Course & Med Decision Making Course & Med Decision Making Pertinent Labs and Imaging studies reviewed. (See chart for details) Patient is a 53-year-old female who was evaluated in the ER due to lower extremity swelling, low back pain. Workup did not find any acute problem except some arthritic changes in the lumbar spine area, patient will need to be discharged home, she will follow with her family doctor for outpatient evaluation with MRI of her lumbar spine. He is amenable to plan of care. Dragon Disclaimer Dragon Disclaimer This electronic medical record was generated, in whole or in part, using a voice recognition dictation system. Departure Departure: Impression: Primary Impression: Back pain Disposition: HOME, SELF-CARE Condition: STABLE Referrals: KIRSTEN SAEED DO (PCP) follow up with your doctor for outpatient evaluation of your lumbar spine with MRI NEXT WEEK. Patient Instructions: Back Pain, Adult GIULIANA VALDEZ DO Sep 04, 2019 09:06
[2019-09-04 09:09] LABS: CREATININE 0.5 mg/dL (0.6-1.0); GFR 157.4; POTASSIUM 4.1 mmol/L (3.5-5.1)
--- NOTE | 2019-09-04 09:20 | RAD ---
Examination: LUMBAR SPINE 2-3V History: Lower back pain for 3 weeks Comparison/Correlation: 07/20/2006 CT abdomen and pelvis without contrast Findings: Total of 3 images of the lumbar spine were obtained. Right upper quadrant surgical clips are incidentally seen. There are 2 radiopaque densities within the pelvis. Correlate with previous intervention. Suture material the left mid abdomen noted. Alignment of the lumbar spine is mostly within normal limits. Minimal retrolisthesis of L3 in relation L4 is present. Mild facet joint degenerative change noted. No fracture or bony destruction. Slight L4-5 disc space narrowing suggested. Impression: No suspicious acute process. Electronically signed by: Paul Power MD (09/04/2019 9:17 AM) [facility]
[2019-09-04 09:21] LABS: ALBUMIN 3.5 g/dL (3.4-5.0); ALBUMIN/GLOBULIN RATIO 1.1 (1.0-1.7); TOTAL BILIRUBIN 0.2 mg/dL (0.2-1.0); TOTAL PROTEIN 6.7 g/dL (6.4-8.2)
[2019-09-04] MEDS ORDERED: HYDROcodone/APAP 5/325MG 1 TAB TABLET PO ONE (09:30)
[2019-09-04 09:58] VITALS: BP 106/66
[2019-09-04] MEDS ORDERED: TRAM50TA PO (10:01)
== END 2019-09-04 10:05 | disposition home or self-care (01) ==
LOC: ER 07:44
DX: M54.5 Low back pain (principal); R22.43 Localized swelling, mass and lump, lower limb, bilateral; F41.9 Anxiety disorder, unspecified; F32.9 Major depressive disorder, single episode, unspecified; G43.909 Migraine, unspecified, not intractable, without status migrainosus; Z90.49 Acquired absence of other specified parts of digestive tract; Z90.710 Acquired absence of both cervix and uterus; Z90.722 Acquired absence of ovaries, bilateral; Z88.0 Allergy status to penicillin; Z88.5 Allergy status to narcotic agent; Z88.8 Allergy status to other drugs, medicaments and biological substances
CPT/HCPCS: 36415; 72100; 80053; 83880; 85025; 85379; 99285

== ENCOUNTER 2019-10-09 10:53 | Emergency (ER) | payer OTHER ==
[~2019-10-09] VITALS: Ht 157.5 cm; Wt 74.8 kg
[2019-10-09 11:06] VITALS: BP 109/64
--- NOTE | 2019-10-09 11:32 | RAD ---
Single view chest dated 10/09/2019: No comparison available. Clinical Indication: Left sided chest pain. Findings: Single upright portable exam of the chest was performed. Heart size and mediastinal contours are within normal limits given technique. The lungs are clear without evidence of focal consolidation. Vascular interstitium is within normal limits. No apparent bony abnormality. Impression:: No acute radiographic abnormality. Electronically signed by: Giovany Delcid MD (10/09/2019 11:29 AM) [id number]
--- NOTE | 2019-10-09 11:45 | RAD ---
Examination: CT HEAD AND CERVICAL SPINE WO History: Pain, trauma Comparison/Correlation: None Findings: Axial images of the head and cervical spine were obtained without contrast. Sagittal and coronal reformatted images were provided. No intracranial hemorrhage, midline shift, or mass effect. Optic nerves and the globes are unremarkable. Alignment of the cervical spine is normal. No fracture or bone destruction. No significant degenerative change for the patient's age. Soft tissues of the neck are unremarkable. Impression: No intracranial hemorrhage. Normal alignment of the cervical spine. No fracture. PQRS Compliance Statement: One or more of the following individualized dose reduction techniques were utilized for this examination: 1. Automated exposure control 2. Adjustment of the mA and/or kV according to patient size 3. Use of iterative reconstruction technique Electronically signed by: Paul Power MD (10/09/2019 11:42 AM) [id number]
--- NOTE | 2019-10-09 13:12 | PHYS DOC ---
Past History Past Medical History: Anxiety, Depression Past Surgical History: Cholecystectomy, Gastric Bypass, Hysterectomy Additional Past Surgical Histo: buttocks tucked Alcohol Use: None Drug Use: None Adult General Chief Complaint Chief Complaint: MECHANICAL FALL HPI HPI Patient is a 54-year-old female brought in by ambulance after a mechanical fall on the ice outside in the parking lot. She hit the left side of her head and also left-sided her chest she is having moderate pain in those areas no LOC no vomiting no abdominal pain no back pain otherwise.\ Medications include Geodon and Prozac benzodiazepine as well as Ambien. Review of Systems Review of Systems Constitutional: Denies fever or chills [] Eyes: Denies change in visual acuity, redness, or eye pain [] HENT: Denies nasal congestion or sore throat [] Neurologic: All other systems were reviewed and found to be within normal limits, except as documented in this note. Allergies Allergies Allergies Coded Allergies Type Severity Reaction Last Updated Verified Penicillins Allergy Intermediate ITCHY AND DIARRHEA 09/04/19 Yes morphine Allergy Mild ITCHY 09/04/19 Yes oxycodone Allergy Mild ITCHY 09/04/19 Yes promethazine Allergy Mild ITCHY 09/04/19 Yes Physical Exam Physical Exam Constitutional: Well developed, well nourished, no acute distress, non-toxic appearance. [] HENT: Normocephalic, contusion to the occiput, bilateral external ears normal, oropharynx moist, no oral exudates, nose normal. [] Eyes: PERRLA, EOMI, conjunctiva normal, no discharge. [] Neck: There was initial paraspinous tenderness as well as C3-C4 midline mild tenderness but patient was getting up and walking around the room despite us asking her not to Cardiovascular:Heart rate regular rhythm, no murmur [] Lungs & Thorax: Bilateral breath sounds clear to auscultation []mild left chest wall tenderness Abdomen: Bowel sounds normal, soft, no tenderness, no masses, no pulsatile masses. [] Skin: Warm, dry, no erythema, no rash. [] Back: No tenderness, no CVA tenderness. [] Extremities: No tenderness, no cyanosis, no clubbing, ROM intact, no edema. [] Neurologic: Alert and oriented X 3, normal motor function, normal sensory function, no focal deficits noted. [] Psychologic: R affect somewhat slow to answer questions but able to do so. Current Patient Data Vital Signs Vital Signs Date Time Temp Pulse Resp B/P (MAP) Pulse Ox O2 Delivery O2 Flow Rate FiO2 10/09/19 11:06 98.0 52 18 109/64 (79) 99 Room Air EKG EKG [] Radiology/Procedures Radiology/Procedures []gle upright portable exam of the chest was performed. Heart size and mediastinal contours are within normal limits given technique. The lungs are clear without evidence of focal consolidation. Vascular interstitium is within normal limits. No apparent bony abnormality. Impression:: No acute radiographic abnormality. Electronically signed by: Giovany Delcid MD (10/09/2019 11:29 AM) [facility] DICTATED AND SIGNED BY: GIOVANY DELCID MD DATE: 10/09/19 1129 CC: KIRSTEN SAEED DO; JORI CAIN MD ~ Impressions: Impression: No intracranial hemorrhage. Normal alignment of the cervical spine. No fracture. PQRS Compliance Statement: One or more of the following individualized dose reduction techniques were utilized for this examination: 1. Automated exposure control 2. Adjustment of the mA and/or kV according to patient size 3. Use of iterative reconstruction technique Electronically signed by: Paul Curtis MD (10/09/2019 11:42 AM) [id number] DICTATED AND SIGNED BY: PAUL CURTIS MD DATE: 10/09/19 1142 CC: KIRSTEN SAEED DO; JORI CAIN MD ~ Course & Med Decision Making Course & Med Decision Making Pertinent Labs and Imaging studies reviewed. (See chart for details) []Mechanical fall on the ice imaging negative patient reassured neuro intact discharge home Dragon Disclaimer Dragon Disclaimer This electronic medical record was generated, in whole or in part, using a voice recognition dictation system. Departure Departure: Impression: Primary Impression: Head injury Disposition: HOME, SELF-CARE Condition: STABLE Patient Instructions: Head Injury, Adult, [employer] JORI CAIN MD Oct 09, 2019 13:11
== END 2019-10-09 12:33 | disposition home or self-care (01) ==
LOC: ER 10:53
DX: S00.03XA Contusion of scalp, initial encounter (principal); R07.89 Other chest pain; Z90.49 Acquired absence of other specified parts of digestive tract; Z90.710 Acquired absence of both cervix and uterus; Z88.0 Allergy status to penicillin; Z88.5 Allergy status to narcotic agent; Z88.8 Allergy status to other drugs, medicaments and biological substances; W01.198A Fall on same level from slipping, tripping and stumbling with subsequent striking against other object, initial encounter; Y93.89 Activity, other specified; Y92.89 Other specified places as the place of occurrence of the external cause; Y99.8 Other external cause status
CPT/HCPCS: 70450; 71045; 72125; 99285

== ENCOUNTER 2019-12-06 16:55 | Emergency (ER) | payer OTHER ==
[~2019-12-06] VITALS: Ht 157.5 cm; Wt 74.3 kg
[2019-12-06 16:55] VITALS: BP 130/95
[2019-12-06] MEDS ORDERED: HYDR25TA PO (17:22)
--- NOTE | 2019-12-06 17:22 | PHYS DOC ---
Past History Past Medical History: Anxiety, Bipolar, Depression, Migraines Past Surgical History: Cholecystectomy, Gastric Bypass, Hysterectomy Additional Past Surgical Histo: buttocks tucked Alcohol Use: None Drug Use: None General Adult EDM: Chief Complaint: MEDICATION REFILL HPI: HPI: 54-year-old female presents for medication refill. The patient is on clonazepam and she ran out on Sunday. She did notify her prescriber that she was going to run out but they chose not to refill her prescription. She is supposed to be seen on Sunday. She is very anxious about not having her anxiety medicine for the next 3 days. She has no new complaints. Review of Systems: Review of Systems: Constitutional: Denies fever or chills Eyes: Denies change in visual acuity HENT: Denies nasal congestion or sore throat Respiratory: Denies cough or shortness of breath Cardiovascular: Denies chest pain or edema GI: Denies abdominal pain, nausea, vomiting, bloody stools or diarrhea : Denies dysuria Musculoskeletal: Denies back pain or joint pain Integument: Denies rash Neurologic: Denies headache, focal weakness or sensory changes Endocrine: Denies polyuria or polydipsia Lymphatic: Denies swollen glands Psychiatric: anxiety Heart Score: Risk Factors: Risk Factors: DM, Current or recent (<one month) smoker, HTN, HLP, family history of CAD, obesity. Risk Scores: Score 0 - 3: 2.5% MACE over next 6 weeks - Discharge Home Score 4 - 6: 20.3% MACE over next 6 weeks - Admit for Clinical Observation Score 7 - 10: 72.7% MACE over next 6 weeks - Early Invasive Strategies Allergies: Allergies: Allergies Coded Allergies Type Severity Reaction Last Updated Verified Penicillins Allergy Intermediate ITCHY AND DIARRHEA 09/04/19 Yes morphine Allergy Mild ITCHY 09/04/19 Yes oxycodone Allergy Mild ITCHY 09/04/19 Yes promethazine Allergy Mild ITCHY 09/04/19 Yes Physical Exam: PE: Constitutional: Well developed, well nourished, no acute distress, non-toxic appearance. [] HENT: Normocephalic, atraumatic, bilateral external ears normal, oropharynx moist, no oral exudates, nose normal. [] Eyes: PERRLA, EOMI, conjunctiva normal, no discharge. [] Neck: Normal range of motion, no tenderness, supple, no stridor. [] Cardiovascular:Heart rate regular rhythm, no murmur [] Lungs & Thorax: Bilateral breath sounds clear to auscultation [] Abdomen: Bowel sounds normal, soft, no tenderness, no masses, no pulsatile masses. [] Skin: Warm, dry, no erythema, no rash. [] Back: No tenderness, no CVA tenderness. [] Extremities: No tenderness, no cyanosis, no clubbing, ROM intact, no edema. [] Neurologic: Alert and oriented X 3, normal motor function, normal sensory function, no focal deficits noted. [] Psychologic: Affect normal, judgement normal, mood mildly anxious. [] Current Patient Data: Vital Signs: Vital Signs Date Time Temp Pulse Resp B/P (MAP) Pulse Ox O2 Delivery O2 Flow Rate FiO2 12/06/19 16:55 97.8 78 18 130/95 (107) 100 Room Air EKG: EKG: [] Radiology/Procedures: Radiology/Procedures: [] Course & Med Decision Making: Course & Med Decision Making Pertinent Labs and Imaging studies reviewed. (See chart for details) I explained to the patient that this is a controlled substance and she has a reliable prescriber for it. I am unable to give her a prescription for this. I will give her 1 dose in the emergency room. I will also discharge her with a prescription for hydroxyzine which is mrr-xoydo-vqjopsv. She will follow-up with her psychiatrist as previously planned. She is stable for discharge at this time. [] Arianna Disclaimer: Arianna Disclaimer: This electronic medical record was generated, in whole or in part, using a voice recognition dictation system. Departure Departure: Impression: Primary Impression: Anxiety Disposition: 01 HOME, SELF-CARE Condition: STABLE Referrals: KIRSTEN SAEED DO (PCP) Patient Instructions: Anxiety and Panic Attacks, Dddb[facility] Hydroxyzine Hcl (HYDROXYZINE HCL) 25 Mg Tablet 1 TAB PO TID PRN for ANXIETY, #30 TAB Prov: ZOE KRUEGER DO 12/06/19 ZOE KRUEGER DO Dec 06, 2019 17:22
[2019-12-06] MEDS ORDERED: clonazePAM 1 MG TABLET PO ONE (17:30)
== END 2019-12-06 17:25 | disposition home or self-care (01) ==
LOC: ER 16:55
DX: F41.9 Anxiety disorder, unspecified (principal); Z76.0 Encounter for issue of repeat prescription; F31.9 Bipolar disorder, unspecified; G43.909 Migraine, unspecified, not intractable, without status migrainosus; Z98.84 Bariatric surgery status; Z88.0 Allergy status to penicillin; Z88.5 Allergy status to narcotic agent; Z88.8 Allergy status to other drugs, medicaments and biological substances
CPT/HCPCS: 99283

== ENCOUNTER 2020-12-05 12:18 | Emergency (ER) | payer OTHER ==
[~2020-12-05] VITALS: Ht 157.5 cm; Wt 74.3 kg
[~2020-12-05 12:18] MED LIST changes: -CETI10TA24 PO; +CETI10TA74 PO; +HYDR25TA PO
[2020-12-05 12:23] VITALS: BP 111/74
[2020-12-05] MEDS ORDERED: IOHEXOL 300 MG/ML 75 ML VIAL. IV ONE (13:15)
[2020-12-05 13:58] LABS: BASO # 0.1 x10^3/uL (0.0-0.2); BASO % 2 % (0-3); EOS # 0.3 x10^3/uL (0.0-0.7); EOS % 8 % (0-3); HEMATOCRIT 42.2 % (36.0-47.0); HEMOGLOBIN 14.1 g/dL (12.0-15.5); LYMPH # 1.3 x10^3/uL (1.0-4.8); LYMPH % 33 % (24-48); MEAN CORPUSCULAR HEMOGLOBIN 32 pg (25-35); MEAN CORPUSCULAR HGB CONC 33 g/dL (31-37); MEAN CORPUSCULAR VOLUME 95 fL (79-100); MONO # 0.4 x10^3/uL (0.0-1.1); MONO % 12 % (0-9); NEUT # 1.7 x10^3uL (1.8-7.7); NEUT % 45 % (31-73); PLATELET COUNT 259 x10^3/uL (140-400); RED BLOOD COUNT 4.46 x10^6/uL (3.50-5.40); RED CELL DISTRIBUTION WIDTH 13.9 % (11.5-14.5); WHITE BLOOD COUNT 3.8 x10^3/uL (4.0-11.0)
[2020-12-05] MEDS ORDERED: IV NORMAL SALINE 1,000ML 1,000 ML IV ONE (14:15)
--- NOTE | 2020-12-05 14:18 | RAD ---
Exam: CT abdomen/pelvis with intravenous contrast Indication: Left abdominal pain Comparison: None available Technique: Helical CT imaging performed of the abdomen and pelvis after the intravenous administratio n of 100 cc of Isovue-370 . Sagittal and coronal reformats were obtained. One or more of the following individualized dose reduction techniques were utilized for this examinat ion: 1. Automated exposure control 2. Adjustment of the mA and/or kV according to patient size 3. Use of iterative reconstruction technique. Findings: Lower chest: Lungs are normal. Visualized heart is normal Liver: Normal without focal lesions. Gallbladder/Biliary Tree: Surgically absent Pancreas: Normal Spleen: Normal Adrenal Glands: Bilaterally symmetric Kidneys/Ureters/Bladder: Bilateral kidneys are normal with symmetric ectasia of contrast via both kid neys. There is no hydronephrosis or nephrolithiasis. Urinary bladder appears grossly unremarkable Reproductive Organs: Normal Stomach, small bowel, and colon: There is nonspecific mesenteric haziness inferior to the superior me senteric artery with a few mildly enlarged lymph nodes, the largest lymph node measures up to 10.0 mm (best seen on axial image 54/84 and coronal image 23/54). Vasculature: Aorta is normal in caliber Lymph Nodes: Mildly enlarged mesenteric lymph nodes are seen. Peritoneum and retroperitoneum: Normal Bones: Normal Miscellaneous: None Impression: 1. Nonspecific mesenteric haziness with mildly enlarged mesenteric lymph nodes in the mesentery. The exact etiology of this is not clear. Mild mesenteric adenitis/panniculitis suspected. Electronically signed by: Winifred Hendrickson MD (12/05/2020 2:15 PM) [facility]
--- NOTE | 2020-12-05 14:34 | PHYS DOC ---
Past History Past Medical History: Anxiety, Bipolar, Depression, Migraines Past Surgical History: Cholecystectomy, Gastric Bypass, Hysterectomy Additional Past Surgical Histo: buttocks tucked Alcohol Use: None Drug Use: None Adult General Chief Complaint Chief Complaint: BACK PAIN OR INJURY [facility] HPI Patient is a 55-year-old female presenting due to concerns of left-sided lower back pain that wraps around to her front. She reports that her symptoms began on Sunday when she was shopping for shoes and moved from a seated to standing position. She reports when the symptoms began they were so bad that she had to remain in a flexed position and put pressure bilaterally on her suprapubic noah on. She reports initially she thought her symptoms were due to issues with having a bowel movement. Therefore she reported giving herself an enema to have a bowel movement. She reports a bowel movement that she had after the enema was watery and nonbloody. She reports no changes in urination since symptom onset and no burning or stinging when she urinates. Reports past total abdominal hysterectomy, cholecystectomy, and gastric bypass surgery with a tummy tuck after weight loss. Patient denies chest pain, shortness of breath, nausea, vomiting, diarrhea, changes in bowel habitus, changes in urination, and previous history of kidney stones/kidney pathology. Review of Systems Review of Systems Fourteen body systems of review of systems have been reviewed. See HPI for pertinent positives and negative responses, other young all other systems are negative, non-pertinent or non-contributory Current Medications Current Medications Current Medications Medications (Trade) Dose Ordered Sig/Ana Start Time Stop Time Status Last Admin Dose Admin Fentanyl Citrate (Fentanyl 2ml Vial) 50 mcg 1X ONCE 12/05/20 14:15 12/05/20 14:16 DC Iohexol (Omnipaque 300 Mg/ml) 75 ml 1X ONCE 12/05/20 13:15 12/05/20 13:16 DC 12/05/20 13:35 75 ML Sodium Chloride 1,000 ml @ 1,000 mls/hr 1X ONCE 12/05/20 14:15 12/05/20 15:14 Allergies Allergies Allergies Coded Allergies Type Severity Reaction Last Updated Verified Penicillins Allergy Intermediate ITCHY AND DIARRHEA 09/04/19 Yes morphine Allergy Mild ITCHY 09/04/19 Yes oxycodone Allergy Mild ITCHY 09/04/19 Yes promethazine Allergy Mild ITCHY 09/04/19 Yes Physical Exam Physical Exam Constitutional: Well developed, well nourished, no acute distress, non-toxic appearance. HENT: Normocephalic, atraumatic, bilateral external ears normal, oropharynx moist, no oral exudates, nose normal. Eyes: PERRLA, EOMI, conjunctiva normal, no discharge. Neck: Normal range of motion, no tenderness, supple, no stridor. Cardiovascular:Heart rate regular rhythm, no murmur Lungs & Thorax: Bilateral breath sounds clear to auscultation Abdomen: Bowel sounds normal, soft, no tenderness, no masses, no pulsatile masses. Positive CVA tenderness on left negative CVA tenderness on right. Negative Pak sign, positive McBurney point tenderness, positive periumbilical tenderness, positive right-sided obturator sign, negative upper left-sided obturator sign, negative heel strike bilaterally, negative psoas sign, negative Rovsing sign Skin: Warm, dry, no erythema, no rash. Back: No tenderness, no CVA tenderness. Extremities: No tenderness, no cyanosis, no clubbing, ROM intact, no edema. Neurologic: Alert and oriented X 3, normal motor function, normal sensory function, no focal deficits noted. Psychologic: Affect normal, judgement normal, mood normal. Current Patient Data Vital Signs Vital Signs Date Time Temp Pulse Resp B/P (MAP) Pulse Ox O2 Delivery O2 Flow Rate FiO2 12/05/20 12:23 98.2 79 16 111/74 (86) 98 Room Air Lab Results Laboratory Tests Test 12/05/20 13:25 White Blood Count 3.8 x10^3/uL (4.0-11.0) L Red Blood Count 4.46 x10^6/uL (3.50-5.40) Hemoglobin 14.1 g/dL (12.0-15.5) Hematocrit 42.2 % (36.0-47.0) Mean Corpuscular Volume 95 fL (79-100) Mean Corpuscular Hemoglobin 32 pg (25-35) Mean Corpuscular Hemoglobin Concent 33 g/dL (31-37) Red Cell Distribution Width 13.9 % (11.5-14.5) Platelet Count 259 x10^3/uL (140-400) Neutrophils (%) (Auto) 45 % (31-73) Lymphocytes (%) (Auto) 33 % (24-48) Monocytes (%) (Auto) 12 % (0-9) H Eosinophils (%) (Auto) 8 % (0-3) H Basophils (%) (Auto) 2 % (0-3) Neutrophils # (Auto) 1.7 x10^3uL (1.8-7.7) L Lymphocytes # (Auto) 1.3 x10^3/uL (1.0-4.8) Monocytes # (Auto) 0.4 x10^3/uL (0.0-1.1) Eosinophils # (Auto) 0.3 x10^3/uL (0.0-0.7) Basophils # (Auto) 0.1 x10^3/uL (0.0-0.2) EKG EKG [] Radiology/Procedures Radiology/Procedures PROCEDURE: CT ABD PELV W/ IV CONTRST ONLY Exam: CT abdomen/pelvis with intravenous contrast Indication: Left abdominal pain Comparison: None available Technique: Helical CT imaging performed of the abdomen and pelvis after the intravenous administration of 100 cc of Isovue-370 . Sagittal and coronal reformats were obtained. One or more of the following individualized dose reduction techniques were utilized for this examination: 1. Automated exposure control 2. Adjustment of the mA and/or kV according to patient size 3. Use of iterative reconstruction technique. Findings: Lower chest: Lungs are normal. Visualized heart is normal Liver: Normal without focal lesions. Gallbladder/Biliary Tree: Surgically absent Pancreas: Normal Spleen: Normal Adrenal Glands: Bilaterally symmetric Kidneys/Ureters/Bladder: Bilateral kidneys are normal with symmetric ectasia of contrast via both kidneys. There is no hydronephrosis or nephrolithiasis. Urinary bladder appears grossly unremarkable Reproductive Organs: Normal Stomach, small bowel, and colon: There is nonspecific mesenteric haziness inferior to the superior mesenteric artery with a few mildly enlarged lymph nodes, the largest lymph node measures up to 10.0 mm (best seen on axial image 54/84 and coronal image 23/54). Vasculature: Aorta is normal in caliber Lymph Nodes: Mildly enlarged mesenteric lymph nodes are seen. Peritoneum and retroperitoneum: Normal Bones: Normal Miscellaneous: None Impression: 1. Nonspecific mesenteric haziness with mildly enlarged mesenteric lymph nodes in the mesentery. The exact etiology of this is not clear. Mild mesenteric adenitis/panniculitis suspected. Electronically signed by: Winifred Hendrickson MD (12/05/2020 2:15 PM) [facility] DICTATED AND SIGNED BY: WINIFRED HENDRICKSON MD DATE: 12/05/20 140 CC: KIRSTEN SAEED DO; DANYELL HEAD DO ~MTH0 0 Heart Score C/O Chest Pain: No HEART Score for Chest Pain: HEART Score for Chest Pain Response (Comments) Value History Slighlty/Non-Suspicious 0 ECG Normal 0 Age >45 - < 65 1 Risk Factors 1 or 2 Risk Factors 1 Total 2 Risk Factors: Risk Factors: DM, Current or recent (<one month) smoker, HTN, HLP, family history of CAD, obesity. Risk Scores: Risk Factors: DM, Current or recent (<one month) smoker, HTN, HLP, family history of CAD, obesity. Course & Med Decision Making Course & Med Decision Making Patient is a 55-year-old female presenting for left-sided lower back pain that radiates to the front since Sunday. Vitals are within normal limits on exam physical exam was significant for left CVA tenderness McBurney's point tenderness and periumbilical tenderness with a positive obturator sign on the right. Given patient's discordance between reported and physical exam findings and because patient has had many bowel surgeries in the past decision to order a CT abdomen with contrast was made. CBC, CMP, lipase were also ordered to evaluate. IV fluids were administered, Zofran was administered and patient was given both fentanyl and acetaminophen for pain control. CT displayed panniculitis with possible adenitis. CBC was unremarkable of note had no elevated white blood cell count. I reviewed entirety of ER course with patient who is now symptomatically improved. I discussed little role for further diagnostic work-up and/or intervention while in ER. I educated patient on likely self-limiting diagnoses found today and advised discharge home with close PCP follow-up for which she has good access to. Supportive care practices educated extensively, strict return precautions discussed with good understanding by patient. All questions and concerns addressed prior to ER departure Arianna Disclaimer Dragon Disclaimer This electronic medical record was generated, in whole or in part, using a voice recognition dictation system. Departure Departure: Impression: Primary Impression: Abdominal pain Additional Impressions: Back pain Costovertebral angle pain Disposition: 01 DC HOME SELF CARE/HOMELESS Condition: STABLE Referrals: KIRSTEN SAEED DO (PCP) Patient Instructions: Abdominal Pain (Nonspecific) Additional Instructions: You have been evaluated in the Emergency Department today for abdominal and suspect back pain. Your evaluation was not suggestive of any emergent condition requiring medical intervention at this time. However, some problems make take more time to appear. Therefore, it is important for you to watch for any new symptoms or worsening of your current condition. As discussed, please follow-up bland diet avoiding foods high in fat, spice and avoiding caffeine drinks. Given your prior GI issues, I recommend you discuss potential of GI consult to review ER visit today. [place], low-residue foods may also be better tolerated than others. For healthy adults with acute viral gastroenteritis without signs of dehydration, sport drinks, diluted fruit juices, and other flavored soft drinks augmented with saltine crackers and broths or soups can meet the fluid and salt needs in almost all cases. Broiled starches/cereals (potatoes, noodles, rice, wheat, and oat) with some salt are excellent foods to consider. In addition, crackers, bananas, yogurt, soups, and boiled vegetables can also be consumed. As discussed you were likely diagnosed with mesenteric adenitis versus panniculitis, both of which are likely self-limiting in nature and respond to supportive care. With that said, repeat evaluation by PCP and if deemed necessary, GI specialist is important Return to the Emergency Department if you experience worsening pain, persistent fevers greater than 100.4, recurrent vomiting, blood in vomit, blood in stool, dark tarry stool, chest pain, difficulty breathing, or any other concerning symptoms. Problem Qualifiers DANYELL HEAD DO Dec 05, 2020 14:34
[2020-12-05 15:05] LABS: BACTERIA,URINE 0 /HPF (0-FEW); BILIRUBIN,URINE NEG (NEG); CLARITY,URINE CLEAR; COLOR,URINE YELLOW; GLUCOSE,URINE NEG (NEG); NITRITE,URINE NEG (NEG); RBC,URINE 0 /HPF (0-2); SQUAMOUS EPITHELIAL CELL,UR FEW /LPF; UROBILINOGEN,URINE 0.2 mg/dL (0.2 mg/dL); WBC,URINE 0 /HPF (0-4)
[2020-12-05] MEDS ORDERED: ACETAMINOPHEN 500 MG TABLET PO ONE (15:15)
[2020-12-05 16:15] LABS: CALCIUM 8.9 mg/dL (8.5-10.1); CREATININE 0.8 mg/dL (0.6-1.0); GFR 90.8
[2020-12-05 16:18] LABS: ALBUMIN 3.7 g/dL (3.4-5.0); TOTAL BILIRUBIN 0.1 mg/dL (0.2-1.0); TOTAL PROTEIN 7.4 g/dL (6.4-8.2)
== END 2020-12-05 17:01 | disposition home or self-care (01) ==
LOC: ER 12:18
DX: M54.5 Low back pain (principal); R10.9 Unspecified abdominal pain; Z88.0 Allergy status to penicillin; Z88.6 Allergy status to analgesic agent; Z90.49 Acquired absence of other specified parts of digestive tract; Z90.710 Acquired absence of both cervix and uterus
CPT/HCPCS: 36415; 74177; 80053; 81001; 83690; 85025; 96361; 96374; 99285; J3010; J7030; Q9967

== ENCOUNTER → 2021-01-28 | Day surgery (SDC) | payer OTHER ==
[~2021-01-28] MED LIST changes: +ACETAMINOPHEN 325 MG TABLET PO PRN; +ALBUTEROL SULFATE 2.5 MG/3 ML NEBU. NEB PRN; +ATROPINE 0.5 MG/5 ML DISP.SYRIN. IV PRN; +FERR-36 PO; +FLUO40CA9 PO; +IV RINGERS SOLUTION,LACTATED 1,000 ML IV SCH; +LIDOCAINE 2% PF 5 ML VIAL. ONE; +MIDAZOLAM HCL PF 2 MG/2 ML VIAL. IV PRN; +ONDANSETRON PF 4 MG/2 ML VIAL. IV PRN; +PANT40TA3 PO; +PHENOL ORAL SPRAY 177ML BOTTLE. MM PRN; +PROPOFOL 10,000 MCG/ML (20ML) VIAL IV ONE; +diphenhydrAMINE 50 MG/ML VIAL IV PRN
[2021-01-28 13:17] VITALS: BP 109/73
--- NOTE | 2021-02-02 16:10 | PATHOLOGY ---
[facility] Accession Number: [id number] . 01 Material submitted: . PART A: stomach - BODY OF STOMACH PART B: jejunum - JEJUNUM BIOPSY . 01 Clinical history: . EGD AND COLONOSCOPY DYSPHAGIA,RECTAL BLEED . 02 Diagnosis: A. Gastric biopsies, gastric body: - Congestion and no significant inflammation. . B. Small intestine mucosa, jejunum biopsies: - No diagnostic abnormalities. (JPM:wooyd; 02/02/2021) S 02/02/2021 1518 Local . 02 Comment: Sections of the gastric biopsy reveal gastric body mucosa showing congestion and no significant inflammation. A properly controlled immunoperoxidase stain for Helicobacter is negative for Helicobacter organisms. . Sections of the jejunal biopsy reveal segments of small intestine mucosa. Where best oriented, the mucosal villi show no sprue-like changes or significant inflammatory changes. (JPM:woody; 02/02/2021) . . Special stain performed: Immunoperoxidase stain for Helicobacter on A1 . 02 Electronically signed: . Sebastien Fernandez MD, Pathologist NPI- [id number] . 01 Gross description: . A. The specimen is received in formalin, labeled "Jefferson, Faceta, body of stomach" received as 2 fragments of soft kemp tissue measuring up to 0.6 cm. Entirely submitted in A1. . B. The specimen is received in formalin, labeled "Jefferson, Faceta, jejunum" received as 3 fragments of soft kemp tissue measuring up to 0.4 cm. Entirely submitted in B1. ([facility]; 02/01/2021) MIN/MIN 02/02/2021 0924 Local . 02 Pathologist provided ICD-10: K31.89, K62.5, R13.10 . 02 CPT . 956164, 863354, G03835 Specimen Comment: A courtesy copy of this report has been sent to [phone], [phone] Specimen Comment: [id number] Specimen Comment: Report sent to / DR SAEED Performed at: 01 [facility] [address] [id number] MD Pipe Snow MD Phone: [phone] Performed at: [address] [facility] [address] [place], [place] [id number] MD Sebastien Fernandez MD Phone: [phone]
== END | disposition home or self-care (01) ==
LOC: SURG 11:06
PROVIDERS: ATTEND Internal Medicine Gastroenterology
DX: R19.4 Change in bowel habit (principal); R10.32 Left lower quadrant pain; K64.8 Other hemorrhoids; R12 Heartburn; R13.10 Dysphagia, unspecified; K21.9 Gastro-esophageal reflux disease without esophagitis; K31.89 Other diseases of stomach and duodenum; K29.70 Gastritis, unspecified, without bleeding; F41.9 Anxiety disorder, unspecified; F31.9 Bipolar disorder, unspecified; Z90.722 Acquired absence of ovaries, bilateral; Z98.84 Bariatric surgery status; Z88.0 Allergy status to penicillin; Z88.5 Allergy status to narcotic agent; Z88.8 Allergy status to other drugs, medicaments and biological substances; Z79.899 Other long term (current) drug therapy; Z90.710 Acquired absence of both cervix and uterus; Z90.49 Acquired absence of other specified parts of digestive tract
CPT/HCPCS: 43239; 43450; 45378; 88305; 88342; J2001; J2704; 43235